=== PATIENT | female | born 1990 | race Caucasian/White ===

== ENCOUNTER 2016-10-27 19:53 | Emergency (ER) | payer OTHER ==
[~2016-10-27] VITALS: Ht 154.9 cm; Wt 80.0 kg
[2016-10-27 19:57] VITALS: Ht 154.9 cm; Wt 80.0 kg
[2016-10-27] MEDS ORDERED: ALBUTEROL 0.083% (NEB) 2.5 MG/3 ML AMP HHN STA (21:34)
--- NOTE | 2016-10-27 22:44 | RADRPT ---
PROCEDURE: XR Chest. CLINICAL INDICATION: Cough and dyspnea. TECHNIQUE: Single frontal view of the chest. COMPARISON: None. FINDINGS: The cardiomediastinal silhouette is within normal limits. Mild atelectasis versus airspace disease a t the left lung base. Otherwise, the lungs are clear. No signs of pleural fluid or pneumothorax are seen. The osseous structures and soft tissues are unremarkable. IMPRESSION: Mild atelectasis versus airspace disease at the left lung base. RPTAT: [facility] Physician Patience Date Time Electronically viewed and signed by Yesi Marshall Physician on 10/27/2016 22:44 RS/
[2016-10-27] MEDS ORDERED: AZIT250T94 PO (23:32)
[2016-10-27] MEDS ORDERED: ALBU8.5H3 INH (23:32)
--- NOTE | 2016-10-27 23:40 | ERD ---
ER Documentation Chief Complaint Date/Time DATE: 10/27/16 TIME: 23:34 Chief Complaint Pt cough, SOB and CWP X 10 days, worst the last 2 days. HPI This is a 26-year-old female presents to the ER with cough for the last 10 days. Patient states that cough is worsening is dry in nature and she has had wheezing. Patient admits to chest pain only with cough. Patient denies any fevers or chills. She denies any hemoptysis. Patient does have a past medical history of childhood asthma. She has tried [id number]-[id number] remedies however they have not worked. ROS 12 point review of systems was done, all negative except per HPI. Medications Home Meds Active Scripts Albuterol Sulfate* (Proair HFA*) 8.5 Gm Hfa.aer.ad, 2 PUFF INH Q4, #1 INHALER Prov:MAGNO GRAYSON 10/27/16 Azithromycin* (Zithromax*) 250 Mg Tablet, 250 MG PO .ZPACK DIRECTED, #6 TAB TAKE 500 MG (2 TABS) THE FIRST DAY THEN 250 MG (1 TAB) DAYS 2-5 Prov:MAGNO GRAYSON 10/27/16 PMhx/Soc Medical and Surgical Hx: pt denies Medical Hx, pt denies Surgical Hx Hx Alcohol Use: Yes (OCCASIONALLY) Hx Substance Use: No Hx Tobacco Use: No Smoking Status: Never smoker Physical Exam Vitals Vital Signs Date Time Temp Pulse Resp B/P Pulse Ox O2 Delivery O2 Flow Rate FiO2 10/27/16 21:45 72 20 98 21 10/27/16 19:57 98.4 94 18 142/83 98 Physical Exam GENERAL: The patient is well-developed, well-nourished, in no acute distress. NECK: Cervical spine is non tender with no step off. Supple, no nuchal rigidity HEENT: Atraumatic. Pupils equal, round and reactive to light. Extraocular muscles are grossly intact. Conjunctivae pink, no discharge. Bilateral tympanic membranes are clear with no evidence of erythema, effusion or dulling of the light reflex. Tonsilar erythema with no exudates or uvular deviation. Clear rhinorrhea. RESPIRATORY: expiratory wheezes in all lung reese. There is no inspiratory stridor or retractions. No flaring/retractions. HEART: Regular rate and rhythm. No murmurs, clicks, rubs or gallops NEUROLOGIC: Alert and oriented. SKIN: There is no rash. The skin is warm and dry. Results 24 hrs Current Medications Medications (Trade) Dose Ordered Sig/Linda Route PRN Reason Start Time Stop Time Status Last Admin Dose Admin Albuterol (Proventil 0.083% (Neb)) 5 mg ONCE STAT HHN 10/27/16 21:34 10/27/16 21:36 DC 10/27/16 21:45 Procedures/MDM Patient was stable throughout ER course. Nebulizing treatment was given to the patient and she felt significantly better. Upon reexamination patient's wheezing was improved. Differential diagnosis includes but is not limited to; Viral URI, allergic rhinitis, bronchitis, pertussis,pneumonia. Patient bronchitis with azithromycin and albuterol. Patient has had worsening symptoms over the last 10 days with no improvement. Clinical suspicion for pneumonia is low as patient appears well, is not hypoxic or in any respiratory distress. Additionally, patients physical examination is benign. Plan was discussed with patient they understand and agree. Patient needs to follow up with PCP in 1-2 days or return to ER sooner if symptoms worsen. Departure Diagnosis: Primary Impression: Bronchitis Condition: Stable Patient Instructions: Bronchitis With Wheezing (Adult) Additional Instructions: Llame al doctor MAANA y dayan minor ETJA PARA DENTRO DE 1-2 MCCURDY.Dgale a la secretaria que nosotros le instruimos hacer esta teja.Avise o llame si segundo condicin se empeora antes de la teja. Regresa aqui si peor o no mejor. MAGNO GRAYSON October 27, 2016 23:40
[2016-10-27 23:48] VITALS: BP 128/71; PULSE 80; RESP 20; TEMP 99.2
== END 2016-10-27 23:49 | disposition home or self-care (01) ==
LOC: FTE 19:53
DX: J20.9 Acute bronchitis, unspecified (principal)
CPT/HCPCS: 71010; 94664; Z7502; Z7610